=== PATIENT | female | born 1935 | race Caucasian/White ===

== ENCOUNTER 2024-09-07 10:45 | Emergency (ER) | payer OTHER, SELFPAY ==
[2024-09-07 11:02] VITALS: BP 175/52
[2024-09-07 11:19] LABS: Hematocrit 30.4 % (37.0-47.0); Hemoglobin 10.3 g/dL (12.0-16.0); Mean Corp Hgb Conc. 33.9 g/dL (33.0-37.0); Mean Corpuscular Volume 92.1 fL (81.0-99.0); Nucleated Red Blood Cells % 0 %; Platelet Count 314 10^3/uL (130-400); Red Cell Dist. Width 13.4 % (11.5-14.5)
[2024-09-07 11:39] LABS: ALT (SGPT) 19 U/L (0-35); AST (SGOT) 23 U/L (14-36); Albumin 4.1 g/dl (3.5-5.0); Alkaline Phosphatase 92 U/L (38-126); Blood Urea Nitrogen 38 mg/dl (7-17); Calcium 9.7 mg/dl (8.4-10.2); Carbon Dioxide 25 mmol/L (22-30); Chloride 106 mmol/L (98-107); Glucose 178 mg/dl (70-99); Potassium 4.4 mmol/L (3.5-5.1); Sodium 138 mmol/L (135-145); Total Protein 6.6 g/dl (6.3-8.2); eGFR 48.94
[2024-09-07 13:26] LABS: Urine Character Clear (Clear)
[2024-09-07 13:33] VITALS: BMI 21.7
--- NOTE | 2024-09-07 13:37 | EDRN ---
Dr. Burks in room w/ pt.
--- NOTE | 2024-09-07 13:37 | EDRN ---
Pt fell a week (last Sat) ago injuring lower L back w/ no injury found in L hip. Pt started having difficulty thinking since Sunday. Pt unable to do her normal routine in shower and unable to figure out how to step into shower. Pt was seen at [facility] ER post fall w/ L hip xray but no CT of head
--- NOTE | 2024-09-07 13:42 | ED.GENMED ---
History of Present Illness
General
Chief Complaint: Change in Mental Status
Time Seen by Provider: 09/07/24 13:28
History of Present Illness
History of Present Illness:
Patient is an 88-year-old female who presents to the emergency department with change in mental status. Family reports she had a fall 8 days ago onto her left hip. She had x-rays done at that time which were negative. She has been ambulating
since they note that over the past 2 days she has developed some changes in her mental status. She has been cognitively slower and forgot how to bathe herself in the shower today
Past History
Past History
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
ED Past Surgical History: Urological (Donated R kidney)
Social History
Tobacco: Non-smoker
Alcohol: None
Drug: None
Personal:
Living: with family
Employment: Retired
Family History
Family History: Unable to obtain
Phy Exam
Physical Exam
Physical Exam:
GENERAL APPEARANCE: NAD, well developed/ well nourished
EYES lids/conjunctiva normal
EARS/NOSE/THROAT Mucous membranes moist
HEAD/NECK normocephalic atraumatic, neck is supple.
RESPIRATORY respiratory effort normal, speaks in full sentences, no accessory muscle use. Lungs clear to auscultation without rhonchi, wheezes, rales
CARDIAC Regular rate and rhythm, no edema.
ABDOMINAL Soft, ND/NT
MUSCLES/EXTREMITIES some tenderness of the left lateral hip region. She has full range of motion without deformity or crepitus. There is no hematoma or bruising visible
SKIN Warm, pink and dry. No rashes
NEUROLOGICAL speech is fluent and Sinhala. She is alert and oriented x 2 not to year. Cranial nerves II through XII are intact. No focal motor deficits or sensory deficits. No dysmetria or ataxia
PSYCH Normal mood and affect. Judgement/competence is appropriate
Course
Orders/Labs/Results
Orders:
Orders
09/07/24 11:01
Electrocardiogram (*1) Urgent
Reason for Study: Fatigue / Weakness
Head wo Contrast CT [CT Head W/o Iv Contrast] Urgent
Comment:
Reason For Exam: confusion
09/07/24 11:02
EKG- Treatment ONCE
09/07/24 11:06
Complete Blood Count/With Diff Urgent
Comprehensive Metabolic Panel Urgent
09/07/24 13:07
Urinalysis Reflex To Culture Urgent
Date Specimen was Collected: 09/07/24
Time Specimen was Collected: 11:02
Urine Microscopic Reflex Cult Urgent
Urine Culture Urgent
TIANA Source: U
Specimen Description:
Date Specimen was Collected: 09/07/24
Time Specimen was Collected: 11:02
09/07/24 14:18
CefTRIAXone [Rocephin] 1,000 mg IV NOW STA
09/07/24 14:50
Speech Screening from Julio Routine
Abnormal Lab Results
09/07/24 09/07/24
11:06 13:07
RBC 3.30 L 10^6/uL
(4.20-5.40)
Hgb 10.3 L g/dL
(12.0-16.0)
Hct 30.4 L %
(37.0-47.0)
MCH 31.2 H pg
(27.0-31.0)
Absolute Lymphs (auto) 1.1 L 10^3/uL
(1.2-3.4)
Absolute Monos (auto) 0.7 H 10^3/uL
(0.1-0.6)
Lymphocytes % 15.1 L %
(20.5-51.1)
Monocytes % 9.5 H %
(1.7-9.3)
BUN 38 H mg/dl
(7-17)
Creatinine 1.1 H mg/dL
(0.6-1.0)
Glucose 178 H mg/dl
(70-99)
Ur Occult Blood Reflex 1+ A
(Negative)
Leukocyte Esterase Rfl 3+ A
(Negative)
Urine RBC 7-10 A /HPF
(0-2)
Urine WBC (Reflex) 50-60 A /HPF
(0-5)
Urine Bacteria (Reflex) Many A
(Negative)
Urine Albumin (Reflex) 2+ A
(Neg - Trace)
09/07/24 11:06
09/07/24 11:06
Vital Signs
Initial and Last Documented VS:
Initial Vital Signs
Temp Pulse Resp Pulse Ox
98.5 F 61 18 99
09/07/24 10:59 09/07/24 10:59 09/07/24 10:59 09/07/24 10:59
Last Documented Vital Signs
Temp Pulse Resp BP Pulse Ox
98.5 F 51 14 171/50 99
09/07/24 10:59 09/07/24 15:00 09/07/24 15:00 09/07/24 15:00 09/07/24 15:00
*Pulse Oximetry
SaO2: 100
Oxygen Mode of Delivery: Room air
Patient hypoxic: no
*Critical Care Note
Total Time (30-74mins, 75-104mins- exclusive of procedures): Not Applicable
ED Attending Note
ED Attending Note
ED Attending Note:
Patient is an 88-year-old female who presents with change in her mental status found to have a urinary tract infection. No evidence of sepsis. Urine culture sent, treated with ceftriaxone. Will prescribe cephalosporin. No focal neurologic
deficits. CT head negative for traumatic injury given recent fall. No respiratory issues, saturating well on room air without any shortness of breath or respiratory complaints.
-
Portions of this chart may have been created with voice recognition software.� Occasional wrong word or��sound alike� substitutions may have occurred due to the inherent limitations of voice recognition software.
Discharge Plan
Departure
Patient Disposition: Home (Routine Discharge)
Date of Disposition: 09/07/24
Time of Disposition: 14:58
Patient with high blood pressure during this ER visit?: Yes
Discharge Problem:
Urinary tract infection, Acute alteration in mental status
Instructions: Urinary tract infection - Discharge instructions
Prescriptions:
New
cephalexin 500 mg capsule
500 mg PO QID Qty: 28 0RF
No Action
montelukast 10 mg Tablet
10 mg PO DAILY Qty: 0
Trintellix 10 mg Tablet
10 mg PO DAILY Qty: 0
buspirone 5 mg Tablet
5 mg PO TID
Creon 36,000-114,000- 180,000 unit capsule,delayed release(DR/EC)
2 cap PO BID
rosuvastatin 20 MG tablet
20 mg PO QPM Qty: 30 0RF
Eliquis 2.5 MG tablet
2.5 mg PO BID Qty: 60 0RF
melatonin 3 mg Tablet
3 mg PO HS
omeprazole 40 mg capsule,delayed release(DR/EC)
40 mg PO DAILY@1200
isosorbide mononitrate 30 mg Tablet Extended Release 24 Hr
30 mg PO DAILY Qty: 30 0RF
hydralazine 100 mg Tablet
100 mg PO TID Qty: 90 0RF
carvedilol 6.25 mg tablet
3.125 mg PO BID
amoxicillin-pot clavulanate 250-125 mg Tablet
1 tab PO Q12 7 Days Qty: 14 0RF
Referrals:
Gurinder Meraz MD [Family Provider, Internal Medicine]
Interventions
Interventions:
*Risk Screen - Suicide Last Done: 09/07/24 10:59
*General Assessment Last Done: 09/07/24 10:59
*Neglect/Abuse Screening Last Done: 09/07/24 10:59
*ED- Fall Risk Assessment Last Done: 09/07/24 10:59
*ED COVID-19 Vaccine History Last Done: 09/07/24 10:59
*Nursing Disposition Last Done: 09/07/24 15:42
ED- Pulmonary Assessment Last Done: 09/07/24 14:50
ED-Psychological Assessment Last Done: 09/07/24 14:50
ED- Neurological Assessment Last Done: 09/07/24 13:37
ED- Cardiac Assessment Last Done: 09/07/24 14:50
ED Swallowing Screen Last Done: 09/07/24 14:49
Discharge Date and Time
Discharge Date/Time: 09/07/24 15:44
Print Language: LATVIAN
[2024-09-07 14:00] VITALS: BP 171/46
[2024-09-07 14:05] LABS: Urine White Cell 50-60 /HPF (0-5)
[2024-09-07] MEDS: ROCEPHIN 1000 MG IV (14:45)
[2024-09-07 14:48] VITALS: BP 175/48
--- NOTE | 2024-09-07 14:53 | EDRN ---
Dr. Burks in to see pt.
[2024-09-07 15:00] VITALS: BP 171/50
== END 2024-09-07 15:44 | disposition home or self-care (01) ==
LOC: EMR 10:45
PROVIDERS: Student in an Organized Health Care Education/Training Program; EMERGENCY PHYSICIAN Emergency Medicine; FAMILY PHYSICIAN Internal Medicine
DX: N39.0 Urinary tract infection, site not specified (principal); I10 Essential (primary) hypertension; E78.00 Pure hypercholesterolemia, unspecified; Z86.73 Personal history of transient ischemic attack (TIA), and cerebral infarction without residual deficits
CPT/HCPCS: 99284; 96374; 70450; 80053; 81003; 81015; 85025; 87077; 87086; 87186; 93005

== ENCOUNTER 2024-11-30 11:48 | Emergency (ER) | payer OTHER, SELFPAY ==
[2024-11-30] VITALS (8 sets, daily range): BP systolic 177–188; BP diastolic 51–59
[2024-11-30 12:22] LABS: Hematocrit 35.1 % (37.0-47.0); Hemoglobin 11.6 g/dL (12.0-16.0); Mean Corp Hgb Conc. 33.0 g/dL (33.0-37.0); Mean Corpuscular Volume 90.2 fL (81.0-99.0); Nucleated Red Blood Cells % 0 %; Platelet Count 253 10^3/uL (130-400); Red Cell Dist. Width 14.4 % (11.5-14.5)
[2024-11-30 12:33] LABS: ALT (SGPT) 33 U/L (0-35); AST (SGOT) 36 U/L (14-36); Albumin 4.8 g/dl (3.5-5.0); Alkaline Phosphatase 90 U/L (38-126); Blood Urea Nitrogen 51 mg/dl (7-17); Calcium 10.3 mg/dl (8.4-10.2); Carbon Dioxide 26 mmol/L (22-30); Chloride 102 mmol/L (98-107); Glucose 176 mg/dl (70-99); Potassium 4.5 mmol/L (3.5-5.1); Sodium 138 mmol/L (135-145); Total Protein 7.5 g/dl (6.3-8.2); eGFR 31.21
[2024-11-30 12:44] LABS: Troponin I 0.021 ng/ml
--- NOTE | 2024-11-30 14:14 | ED.GENMED ---
Addendum entered and electronically signed by Edgar Lloyd PA-C 12/03/24 06:28:
Likely asymptomatic bacteruria, symptoms not c/w UTI
Original Note:
History of Present Illness
General
Chief Complaint: Anxiety
Source: patient and family (son and daughter in law)
Exam Limitations: none
Time Seen by Provider: 11/30/24 14:06
History of Present Illness
History of Present Illness:
Patient to ED with report of 'whooshing' sound in head, anxiety, elevated BP, fatigue. Son states symptoms started about 1 week ago. Denies any fever/chills, n/v/d. No cp/pressure, SOB. Brought to ED by family for eval.
Past History
Past History
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
ED Past Surgical History: Urological (Donated R kidney)
Social History
Tobacco: Non-smoker
Alcohol: None
Drug: None
Personal:
Living: with family
Employment: Retired
Family History
Family History: Unable to obtain
Review of Systems
Review of Systems
Allergies reviewed?: Yes
All Other Systems: ROS reviewed and negative except as documented in HPI and ROS
Constitutional: Reports no symptoms
EENT: Reports no symptoms
Respiratory: Reports no symptoms
Cardiac: Reports other (elevated BP reading)
ABD/GI: Reports no symptoms
: Reports no symptoms
Musculoskeletal: Reports no symptoms
Skin: Reports no symptoms
Neurological: Reports weakness
Psychiatric: Reports no symptoms
Phy Exam
General Physical Exam
General Presentation: mild distress
General age: appears stated age
General Skin: warm and dry
General Habitus: normal
General Mental: alert
Cardiovascular Exam
Cardiovascular Exam: regular rate/rhythm
Pulmonary Exam
Pulmonary Exam: lungs clear and no respiratory distress
Gastrointestinal Exam
Gastrointestinal Exam: normal bowel sounds, non tender, soft, no organomegaly and non distended
Musculoskeletal Exam
Musculoskeletal Exam: full ROM and neuro vasc intact
Skin Exam
Skin Exam: normal color, warm/dry and no rash
Psychiatric Exam
Psychiatric Exam: anxious
Course
Orders/Labs/Results
Orders:
Orders
11/30/24 11:55
EKG [Electrocardiogram (*1)] Urgent
Reason for Study: Chest Pain
EKG- Treatment ONCE
11/30/24 12:02
Complete Blood Count/With Diff Urgent
Comprehensive Metabolic Panel Urgent
Pro-BNP [NT-proBNP] Urgent
Troponin I Urgent
11/30/24 13:55
UA Reflex to Culture [Urinalysis Reflex To Culture] Urgent
Date Specimen was Collected: 11/30/24
Time Specimen was Collected: 12:16
Urine Microscopic Reflex Cult Urgent
Urine Culture Urgent
TIANA Source: U
Specimen Description:
Date Specimen was Collected: 11/30/24
Time Specimen was Collected: 12:16
11/30/24 14:15
CT Head W/o Iv Contrast Urgent
Comment:
Reason For Exam: pain
11/30/24 14:16
CR Chest - 2 Views Urgent
Comment:
Reason For Exam: weakness
11/30/24 17:07
Acetaminophen [Tylenol] 650 mg PO NOW STA
Abnormal Lab Results
11/30/24 11/30/24
12:02 13:55
RBC 3.89 L 10^6/uL
(4.20-5.40)
Hgb 11.6 L g/dL
(12.0-16.0)
Hct 35.1 L %
(37.0-47.0)
MPV 10.8 H fL
(7.4-10.4)
Abs Immat Gran (auto) 0.1 H 10^3/uL
(0-0.05)
Absolute Lymphs (auto) 1.1 L 10^3/uL
(1.2-3.4)
Absolute Monos (auto) 0.7 H 10^3/uL
(0.1-0.6)
Immature Gran % 0.8 H %
(0-0.5)
Lymphocytes % 14.0 L %
(20.5-51.1)
BUN 51 H mg/dl
(7-17)
Creatinine 1.6 H mg/dL
(0.6-1.0)
Glucose 176 H mg/dl
(70-99)
Calcium 10.3 H mg/dl
(8.4-10.2)
Ur Occult Blood Reflex 1+ A
(Negative)
Leukocyte Esterase Rfl 1+ A
(Negative)
Urine Bacteria (Reflex) Few A
(Negative)
Urine Albumin (Reflex) 2+ A
(Neg - Trace)
11/30/24 12:02
11/30/24 12:02
Vital Signs
Initial and Last Documented VS:
Initial Vital Signs
Temp Pulse Resp Pulse Ox
98.5 F 64 18 99
11/30/24 11:52 11/30/24 11:52 11/30/24 11:52 11/30/24 11:52
Last Documented Vital Signs
Temp Pulse Resp BP Pulse Ox
98.5 F 51 12 184/57 99
11/30/24 11:52 11/30/24 17:45 11/30/24 17:45 11/30/24 17:00 11/30/24 17:45
*Radiology
Radiology exam reviewed: radiology read reviewed
*Pulse Oximetry
SaO2: 99
Oxygen Mode of Delivery: Room air
Patient hypoxic: no
*Critical Care Note
Total Time (30-74mins, 75-104mins- exclusive of procedures): Not Applicable
Update Note
Update Note:
Patient to the emergency room accompanied by her son and [id number] for complaint of fatigue, a whooshing sensation in her head, elevated anxiety and elevated blood pressure. She is currently taking medications for both her blood pressure and
anxiety and family reports compliance with medication. Lab results reviewed with patient and family. No concerning findings noted. CT of head negative for acute findings. Chest x-ray NAD. She will be discharged home with her family and will
follow-up with her primary care provider in the a.m.. Son will call in the a.m. to schedule her appointment. Vital signs have remained stable she has remained afebrile. She remains awake alert and oriented and in no distress.
ED Attending Note
-
Portions of this chart may have been created with voice recognition software.� Occasional wrong word or��sound alike� substitutions may have occurred due to the inherent limitations of voice recognition software.
Discharge Plan
Departure
Patient Disposition: Home (Routine Discharge)
Date of Disposition: 11/30/24
Time of Disposition: 17:50
Patient with high blood pressure during this ER visit?: No
Condition: Good
Covid-19: Not Applicable
Discharge Problem:
Anxiety
Instructions: Anxiety, Adult (DC)
Prescriptions:
No Action
montelukast 10 mg Tablet
10 mg PO DAILY Qty: 0
Trintellix 10 mg Tablet
10 mg PO DAILY Qty: 0
buspirone 5 mg Tablet
5 mg PO TID
Creon 36,000-114,000- 180,000 unit capsule,delayed release(DR/EC)
2 cap PO BID
rosuvastatin 20 MG tablet
20 mg PO QPM Qty: 30 0RF
Eliquis 2.5 MG tablet
2.5 mg PO BID Qty: 60 0RF
melatonin 3 mg Tablet
3 mg PO HS
omeprazole 40 mg capsule,delayed release(DR/EC)
40 mg PO DAILY@1200
isosorbide mononitrate 30 mg Tablet Extended Release 24 Hr
30 mg PO DAILY Qty: 30 0RF
hydralazine 100 mg Tablet
100 mg PO TID Qty: 90 0RF
carvedilol 6.25 mg tablet
3.125 mg PO BID
amoxicillin-pot clavulanate 250-125 mg Tablet
1 tab PO Q12 7 Days Qty: 14 0RF
cephalexin 500 mg capsule
500 mg PO QID Qty: 28 0RF
Referrals:
Gurinder Meraz MD [Family Provider, Internal Medicine] - Tomorrow
Interventions
Interventions:
*Risk Screen - Suicide Last Done: 11/30/24 11:52
*General Assessment Last Done: 11/30/24 11:52
*Neglect/Abuse Screening Last Done: 11/30/24 11:52
*ED- Fall Risk Assessment Last Done: 11/30/24 11:52
*ED COVID-19 Vaccine History Last Done: 11/30/24 11:52
*ED Influenza Vaccine History Last Done: 11/30/24 11:52
*Nursing Disposition Last Done: 11/30/24 18:01
ED-Psychological Assessment Last Done: 11/30/24 15:04
Discharge Date and Time
Discharge Date/Time: 11/30/24 18:00
Print Language: MOHAWK
[2024-11-30 14:25] LABS: Urine Character Slightly Cloudy (Clear)
[2024-11-30 14:38] LABS: Urine Red Blood Cell 0-2 /HPF (0-2); Urine Squamous Cell 0-2 /LPF (Few); Urine White Cell 0-2 /HPF (0-5)
[2024-11-30] MEDS: TYLENOL 650 MG PO (17:14)
== END 2024-11-30 18:00 | disposition home or self-care (01) ==
LOC: EMR 11:48
PROVIDERS: Student in an Organized Health Care Education/Training Program; EMERGENCY PHYSICIAN Emergency Medicine; FAMILY PHYSICIAN Internal Medicine
DX: F41.9 Anxiety disorder, unspecified (principal); E78.00 Pure hypercholesterolemia, unspecified; I10 Essential (primary) hypertension; R53.83 Other fatigue; Z86.73 Personal history of transient ischemic attack (TIA), and cerebral infarction without residual deficits
CPT/HCPCS: 99285; 70450; 71046; 80053; 81003; 81015; 83880; 84484; 85025; 87086; 87088; 87186; 93005